=== PATIENT | female | born 1975 | race Caucasian/White ===

== ENCOUNTER → 2022-12-08 15:40 | Outpatient (CLI) | payer OTHER, SELFPAY ==
--- NOTE | 2022-12-08 | DI.MRI.S_ITS ---
PROCEDURE: MR KNEE RT WO CON INDICATIONS: Unspecified internal derangement of right knee TECHNIQUE: Noncontrast sagittal PD fast spin echo and T2 fast spin echo with fat saturation, sagittal 3-D FLASH with fat saturation; coronal T1 spin echo and PD fast spin echo with fat saturation, and axial PD fast spin echo with fat saturation through the knee. COMPARISON: [facility] [place], [place], XR KNEE 4+ VIEWS RIGHT, 11/24/2022, 10:09. FINDINGS: Image quality: Excellent. Menisci: There is partial detachment of the inner 3rd of the posterior horn medial meniscus. Linear oblique high T2 signal intensity within the peripheral 3rd of the medial meniscal body is present without articular surface extension, consistent with myxoid degeneration. The medial and lateral menisci demonstrate otherwise normal morphology and internal signal. The meniscal root ligaments appear intact. Cruciate ligaments: The anterior and posterior cruciate ligaments appear intact. Medial structures: The medial collateral ligament appears intact. Visualized portions of the pes anserinus tendons appear normal. No abnormal bursal fluid. Lateral structures: The lateral collateral ligament, long and short heads of the biceps femoris tendon appear intact. The popliteus tendon appears normal. Iliotibial band appears normal. Anterior structures: The quadriceps and patellar tendons appear intact. Mild T2 signal elevation within the quadriceps and patellar tendons at the patellar insertion sites. Patellar alignment is normal. No femoral trochlear dysplasia or ventral trochlear prominence. No edema in the infrapatellar fat pad. Bones and cartilage: No bone marrow contusions or fractures. 35 mm region of low STIR and high proton density/T1 signal intensity within the proximal tibia with a region of low T1 signal intensity medially. The cartilage of the medial and lateral femorotibial compartments, as well as the patellofemoral compartment, appears normal in thickness. Joint space: There is physiologic knee joint fluid. No Ramirez's cyst. Normal appearing synovial plicae are incidentally noted. IMPRESSION: 1. Partial detachment of the posterior horn medial meniscus. 2. Mild quadriceps and patellar tendinopathy. 3. Proximal tibial intraosseous lipoma. Dictated by: Danielle Bueno M.D. on 12/08/2022 at 16:53 Approved by: Danielle Bueno M.D. on 12/08/2022 at 16:56
== END ==
PROVIDERS: PCP Family Medicine; Referring Provider Orthopaedic Surgery Foot and Ankle Surgery; Visit Provider Orthopaedic Surgery Foot and Ankle Surgery
DX: M23.91 Unspecified internal derangement of right knee (principal); M89.8X6 Other specified disorders of bone, lower leg
CPT/HCPCS: 73721

== ENCOUNTER → 2023-02-16 13:52 | Outpatient (CLI) | payer OTHER, SELFPAY ==
--- NOTE | 2023-02-16 13:54 | DI.RAD.S_ITS ---
PROCEDURE: XR HUMERUS LT 2V INDICATIONS: Lost Nexplanon contraceptive implant TECHNIQUE: 2 views of the humerus were acquired. COMPARISON: None. FINDINGS: Bones: No fractures or dislocations. No suspicious bony lesions. Soft tissues: No suspicious soft tissue calcifications. Contraceptive implant projects over the distal and medial soft tissues of the upper arm. IMPRESSION: Contraceptive implant in the medial upper arm. Dictated by: Lianna Daniels MD, PhD on 02/16/2023 at 14:26 Approved by: Lianna Daniels MD, PhD on 02/16/2023 at 14:27
== END ==
PROVIDERS: PCP Family Medicine; Referring Provider Specialist; Visit Provider Specialist
DX: Z30.46 Encounter for surveillance of implantable subdermal contraceptive (principal)
CPT/HCPCS: 73060